=== PATIENT | female | born 1995 | race Caucasian/White ===

== ENCOUNTER 2016-12-06 18:14 | Emergency (ER) | payer OTHER ==
--- NOTE | 2016-12-06 18:24 | EDPHY ---
H & P Stated Complaint: Right leg pain Time Seen by Provider: 12/06/16 18:20 HPI/ROS: CHIEF COMPLAINT: right leg pain HISTORY OF PRESENT ILLNESS: 21-year-old female presents emergency department complaining of a 1 month history of right calf pain. Patient denies trauma. She is concerned about a blood clot. Patient states she takes control pills and 2 weeks ago took a road trip to [place]. Symptoms started before this road trip. Patient does yoga and is a runner. She reports her leg started bothering her after a gentle hike with her dog. No numbness or tingling in her leg, no swelling, no redness, warmth or fevers. No previous injury to this leg or knee. Patient denies chest pain or shortness of breath. No history of blood clots or family history of blood clots. REVIEW OF SYSTEMS: A comprehensive 10 point review of systems is otherwise negative aside from elements mentioned in the history of present illness. Source: Patient Exam Limitations: No limitations - Social History Smoking Status: Never smoked - Physical Exam Exam: GEN: Awake, alert, oriented, no acute distress RESP: nl resp effort MSK: Right leg with full active flexion and extension of right knee and ankle, no swelling, no erythema, no deformity, mild tenderness to palpation to posterior calf, no popliteal fullness, 2+ pedal pulses, sensation intact to light touch SKIN: No rash, no break in skin Constitutional: Initial Vital Signs Temperature (C) 36.4 C 12/06/16 18:20 Heart Rate 89 12/06/16 18:20 Respiratory Rate 18 12/06/16 18:20 Blood Pressure 125/80 H 12/06/16 18:20 O2 Sat (%) 98 12/06/16 18:20 O2 Delivery Mode Room Air Allergies/Adverse Reactions: No Known Allergies Allergy (Verified 12/06/16 18:32) Home Medications: Medication Instructions Recorded Control Pills 12/06/16 Medical Decision Making - Diagnostics Imaging: Right lower extremity ultrasound negative for DVT, no Cortez cyst seen. Departure - Departure Disposition: Home, Routine, Self-Care Clinical Impression: Right calf pain Condition: Good Instructions: Muscle Strain (ED) Additional Instructions: Rest, ice, elevate, take 600 mg of ibuprofen every 8 hours with food for 3-5 days. Follow up with orthopedist for symptoms that are not improving in the next 7-10 days, return to the emergency department for any worsening symptoms, new symptoms or concerns. Referrals: Alexandra Callaway MD [Medical Doctor] - As per Instructions (Orthopedist on-call)
[2016-12-06 19:36] VITALS: BP 124/74; PULSE 77; RESP 16; TEMP 98.1; O2SAT 96
== END 2016-12-06 19:36 | disposition home or self-care (01) ==
DX: M79.661 Pain in right lower leg (principal)